=== PATIENT | female | born 1985 | race African-American/Black ===

== ENCOUNTER 2017-10-21 16:53 | Outpatient (CLI) | payer OTHER ==
[~2017-10-21] VITALS: Ht 175.3 cm; Wt 80.3 kg
[~2017-10-21 16:53] MED LIST: MOTRIN800 MG PO
== END 2017-10-21 17:10 | disposition home or self-care (01) ==
LOC: OFIC 805 16:53
DX: H61.21 Impacted cerumen, right ear (principal)

== ENCOUNTER 2017-10-27 12:42 | Outpatient (CLI) | payer OTHER | END 2017-10-27 13:00 | disposition home or self-care (01) | LOC: NST 12:42 | DX: Z34.83 Encounter for supervision of other normal pregnancy, third trimester (principal) ==

== ENCOUNTER 2017-11-19 14:32 | Inpatient (IN) | payer OTHER ==
[~2017-11-19] VITALS: Ht 175.3 cm; Wt 82.6 kg
[2017-12-14] MEDS ORDERED: PRENATAL 19 TA1 EACH PO (03:41)
== END 2017-12-16 11:20 | disposition home or self-care (01) | DRG 775 ==
LOC: LDR 12-14 03:06 → OB/GYN 12-14 03:19 → LDR 12-14 03:42 → OB/GYN 12-14 09:36
PROC: 10E0XZZ Delivery of Products of Conception, External Approach (ICD-10-PCS; principal; 2017-12-14)
PROC: 0W8NXZZ Division of Female Perineum, External Approach (ICD-10-PCS; 2017-12-14)
DX: O80 Encounter for full-term uncomplicated delivery (principal); Z3A.39 39 weeks gestation of pregnancy; Z37.0 Single live birth

== ENCOUNTER 2020-01-21 09:15 | Inpatient (IN) | payer OTHER ==
[~2020-01-21] VITALS: Ht 175.3 cm; Wt 82.6 kg
[~2020-01-21 09:15] MED LIST changes: +PRENATAL 19 TA1 EACH PO
== END 2020-01-29 18:58 | disposition home or self-care (01) | DRG 807 ==
LOC: LDR 01-28 07:16 → SURG-SUITE 01-28 07:16 → OB/GYN 02-08 09:15
PROVIDERS: ADMIT Obstetrics & Gynecology
PROC: 10E0XZZ Delivery of Products of Conception, External Approach (ICD-10-PCS; principal; 2020-01-28)
PROC: 3E033VJ Introduction of Other Hormone into Peripheral Vein, Percutaneous Approach (ICD-10-PCS; 2020-01-28)
PROC: 0HQ9XZZ Repair Perineum Skin, External Approach (ICD-10-PCS; 2020-01-28)
PROC: 4A1HXCZ Monitoring of Products of Conception, Cardiac Rate, External Approach (ICD-10-PCS; 2020-01-28)
DX: O70.0 First degree perineal laceration during delivery (principal); Z37.0 Single live birth; Z3A.38 38 weeks gestation of pregnancy